=== PATIENT | male | born 1990 | race American Indian/Alaskan Native ===

== ENCOUNTER 2021-04-28 05:45 | Day surgery (SDC) | payer BC, OTHER ==
[~2021-04-28] VITALS: Ht 167.6 cm; Wt 65.9 kg
[~2021-04-28 05:45] MED LIST: IBUPROFEN600 MG PO; IBUPROFEN800 MG PO; NORCO 10-325 T1 EACH PO; NORCO 5-325 TA1 EACH PO; PERCOCET 10-321 EACH PO; ULTRAM50 MG PO
[2021-04-28] MEDS ORDERED: DICLOFENAC SODI75 MG PO (07:50)
[2021-04-28] MEDS ORDERED: HYDROCODON-ACE1 EA10 PO (07:50)
--- NOTE | 2021-04-28 07:58 | NUR ---
04/28/21 0758 Noa Caceres 0752 PATIENT ARRIVES TO PACU AWAKE BUT VERY DROWSY. TALKING APPROPRIATELY WITH STAFF. RESP EVEN AND UNLABORED, MASK AT 6 LITERS. DENIES PAIN OR NAUSEA. 0755 PATIENT AWAKE BUT DROWSY. CONTINUES TO DENY PAIN OR NAUSEA. OXYGEN OFF.
--- NOTE | 2021-04-28 08:49 | NUR ---
0815 PT BACK FROM PACU ALERT AND AWAKE DENIES PAIN OR NAUSEA, TAKING SIPS OF WATER, DECLINES ANYTHING ELSE TO EAT OR DRINK.
--- NOTE | 2021-04-28 09:41 | NUR ---
0508 PT REPORTS READINESS TO GO HOME. HIS RT HAND IS STILL NUMB HE IS ABLE TO MOVE HIS INDEX FINGER, RADIAL PULSE IS STRONG, CAP REFILL IS LESS THAN 1 SECOND, DISCHARGE INSTRUCTIONS GIVEN TO PT AND THEY BOTH VOICED UNDERSTANDING.
--- NOTE | 2021-04-28 11:57 | NUR ---
PT TAKEN TO OR-CONNECTED WITH FAMILY WAITING IN RM. ALL QUESTIONS ASKED WERE ANSWERED. GAVE ENCOURAGEMENT AND BLESSING. WILL FOLLOW
--- NOTE | 2021-05-01 13:05 | OR ---
[facility] [address] [place], [place] [address] Signed DATE OF OPERATION: SURGEON: Lawrence Harris MD PREOPERATIVE DIAGNOSIS: Partial rotator cuff tear, right shoulder. POSTOPERATIVE DIAGNOSIS: Partial rotator cuff tear, right shoulder. PROCEDURE PERFORMED: Right shoulder arthroscopy, subacromial decompression, and debridement of partial rotator cuff tear. ADAPTIVE PHYSICAL EDUCATION SPECIALIST: None. ANESTHESIA: General. ESTIMATED BLOOD LOSS: Minimal. 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 MRI was consistent with partial and possible full-thickness rotator cuff tear. Risks and benefits of the operative treatment were discussed with him, he elected to proceed. Once consent was obtained, he was taken to the operating room. After adequate anesthesia, he was placed in a beach chair position. All downside pressure points well padded. The shoulder was prepped and draped in the standard sterile fashion. The shoulder was injected with 15 mL of 0.25% Marcaine with epinephrine as was the subacromial space. The standard posterior portal was made and the scope was introduced in the shoulder. ARTHROSCOPIC FINDINGS: The glenohumeral surfaces were intact. Biceps, biceps anchor, and labrum were intact. The subscapularis and the undersurface of the main rotator cuff tendons were all intact. The biceps tendon was intact on the intraarticular position bringing the tendon into the shoulder, did demonstrate some mild tendinitis. The subacromial space showed moderate bursitis with partial thickness tear of the supraspinatus about 25%. Electronically Signed By: LAWRENCE HARRIS MD 05/01/21 0715 Electronically Signed By: LAWRENCE HARRIS MD 05/03/21 0945 PATIENT NAME: OSEAS KRAFT OPERATIVE REPORT DATE OF : [birth year] REPORT #: [id number] PHYSICIAN: LAWRENCE HARRIS MD PCP: DAVIS GUERRA REPORT IS CONFIDENTIAL AND NOT TO BE RELEASED WITHOUT AUTHORIZATION [facility] [address] [place], [place] [address] Signed DESCRIPTION OF PROCEDURE: Diagnostic arthroscopy was undertaken as noted above. The scope was withdrawn and placed in subacromial space and lateral portal was established. The combination of Mitek VAPR and the shaver were used to remove the bursa up to the acromion and down to the rotator cuff. The partial tear was located and was debrided. Good bleeding surface was obtained. The scope was then withdrawn, the shoulder was injected with 60 mg of Toradol at the end of the case. The portals were closed with 3-0 nylon, dressed with Allevyn and OpSite. He tolerated the procedure well. All sponge, needle, and instrument counts were correct. Lawrence Harris MD BA/RAYOL /[id number] Copies: ~ Electronically Signed By: LAWRENCE HARRIS MD 05/01/21 0715 Electronically Signed By: LAWRENCE HARRIS MD 05/03/21 0945 PATIENT NAME: OSEAS KRAFT OPERATIVE REPORT DATE OF : [birth year] REPORT #: [id number] PHYSICIAN: LAWRENCE HARRIS MD PCP: DAVIS GUERRA REPORT IS CONFIDENTIAL AND NOT TO BE RELEASED WITHOUT AUTHORIZATION
== END 2021-04-28 09:30 | disposition home or self-care (01) ==
LOC: DS 05:45
PROVIDERS: ATTEND Specialist
PROC: 0RNJ4ZZ Release Right Shoulder Joint, Percutaneous Endoscopic Approach (ICD-10-PCS; 2021-04-28)
PROC: 0LQ14ZZ Repair Right Shoulder Tendon, Percutaneous Endoscopic Approach (ICD-10-PCS; principal; 2021-04-28 06:45)
DX: M75.111 Incomplete rotator cuff tear or rupture of right shoulder, not specified as traumatic (principal); M75.21 Bicipital tendinitis, right shoulder; M75.51 Bursitis of right shoulder; G89.18 Other acute postprocedural pain; Z88.0 Allergy status to penicillin; Z91.040 Latex allergy status; Z86.16 Personal history of COVID-19
CPT/HCPCS: 00450; 64415; 76942; C1713; J0330; J0690; J1100; J1885; J2001; J2250; J2405; J2704; J2795

== ENCOUNTER 2022-02-01 12:01 | Emergency (ER) | payer BC, OTHER ==
[~2022-02-01] VITALS: Ht 167.6 cm; Wt 67.8 kg
[~2022-02-01 12:01] MED LIST changes: +DICLOFENAC SODI75 MG PO; +HYDROCODON-ACE1 EA10 PO
== END 2022-02-01 15:14 | disposition home or self-care (01) ==
LOC: ED 12:01
DX: S30.1XXA Contusion of abdominal wall, initial encounter (principal); X58.XXXA Exposure to other specified factors, initial encounter; Z88.0 Allergy status to penicillin; Z91.040 Latex allergy status
CPT/HCPCS: 36415; 74177; 80053; 85025; 99284-25; Q9967